=== PATIENT | male | born 1985 | race Caucasian/White ===

== ENCOUNTER 2016-12-31 09:49 | Emergency (ER) | payer SELFPAY ==
[~2016-12-31] VITALS: Ht 188 cm; Wt 129.5 kg
[2016-12-31 10:00] VITALS: BP 164/99; TEMP 97.8
[2016-12-31 10:47] LABS: BASO % 0.3 % (0.0-2.0); EOS # 0.1 (0.0-0.7); EOS % 1.7 % (0-4.0); GRAN # 4.5 (1.4-6.5); GRAN % 61.9 % (42.2-75.2); HEMATOCRIT 46.7 % (42.0-52.0); LYMPH # 2.1 (1.2-3.4); LYMPH % 28.6 % (20.0-51.0); MEAN CELL VOLUME 90 fl (80.0-100.0); MEAN CORPUSCULAR HEMOGLOBIN 31 pg (27.0-31.0); MEAN CORPUSCULAR HGB CONC 34 g/dl (33.0-37.0); MEAN PLATELET VOLUME 9.7 fl (7.4-10.4); MONO # 0.5 (0.1-0.6); MONO % 7.2 % (1.7-9.3); PLATELET COUNT 174 K/mm3 (130-400); RED BLOOD COUNT 5.19 M/mm3 (4.20-5.60); REDCELL DISTRIBUTION WIDTH-CV 13.2 % (11.5-14.5); WHITE BLOOD COUNT 7.2 K/mm3 (4.8-10.8)
[2016-12-31] MEDS ORDERED: NORCO 325 MG-7.1 TAB PO (11:16)
[2016-12-31 11:58] VITALS: PULSE 63
== END 2016-12-31 11:59 | disposition home or self-care (01) ==
LOC: COL.ER 09:49
PROVIDERS: Physician Assistant
DX: J02.0 Streptococcal pharyngitis (principal); M79.1 Myalgia
CPT/HCPCS: J0561; J1885; J3360